=== PATIENT | male | born 1985 | race African-American/Black ===

== ENCOUNTER → 2018-01-09 | Outpatient (CLI) | payer OTHER ==
[~2018-01-09] MED LIST: NORCO 325 MG-51 TAB PO
[2018-01-09 09:37] LABS: SEMEN ANALYSIS VOLUME 1.6 mL (2.0-5.0)
[2018-01-09 13:24] LABS: SPERM MORPHOLOGY NORMAL FORMS >30 % (NORM >30)
== END | disposition home or self-care (01) ==
LOC: LAB 08:16
PROVIDERS: Urology
DX: N46.9 Male infertility, unspecified (principal)

== ENCOUNTER 2018-03-02 15:46 | Inpatient (IN) | payer OTHER ==
[~2018-03-02] VITALS: Ht 180.3 cm; Wt 122.7 kg
[2018-03-02] VITALS (7 sets, daily range): BP systolic 121–155; BP diastolic 52–97
--- NOTE | ~2018-03-02 | WRIGHTHP ---
[place], [place] PATIENT HISTORY AND PHYSICAL EXAM NAME: SADIE GALEANA UNIT #: [id number] ROOM: 530 DOCTOR: JACQUELIN WEISS MD BIRTHDATE: [birth year] DOS: 03/02/2018 HISTORY OF PRESENT ILLNESS: The patient is 32 years old. He comes in with complaints of chest pain. He was sitting at home yesterday when he experienced pain in the left side of his chest with radiation to the neck. He was a little short of breath. His heart raced a little bit, so his told him to take himself to the Emergency Room. In the Emergency Room, he was given a GI cocktail, which seems to have helped as per the patient. He denies having any fever, chills, any abdominal pain, nausea, emesis. He did not eat anything unusual. He did not have any abdominal pain, abdominal distention. PAST MEDICAL HISTORY: None significant. He has never been hospitalized. PAST SURGICAL HISTORY: He has never had any surgeries. MEDICATIONS: He does not take any medications. SOCIAL HISTORY: He does not smoke. Social alcohol usage only, does not use any recreational drugs. 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 PHYSICAL EXAMINATION: GENERAL: He is awake and alert and oriented. VITAL SIGNS: Graphic trend shows a pressure 143/92, pulse of 109, respirations 18, temperature 98.2. LUNGS: Diminished breath sounds, clear. HEART: Regular. ABDOMEN: Obese, soft, nontender. EXTREMITIES: Without any edema. ASSESSMENT AND PLAN: 1. Precordial chest pain. Other than being a male, he does not have any risk factors, no family history. So, the patient has been admitted. Rule out PR protocol was ordered. His troponins are borderline elevated and this could be from the renal abnormality that was noted. His creatinine is 1.45 with a GFR of 57. The patient is ordered a cardiac testing. Cardiology consultations were obtained. The patient is scheduled for a stress test. If it is negative, we will discharge him today. 2. Abnormal kidney functions, creatinine 1.45, GFR 57. At the age of 32, this is concerning, so we will go ahead and arrange for a renal ultrasound to make sure there are no structural abnormalities and the patient needs to follow up with the PCP for further followup on the renal functions. [place], [place] PATIENT HISTORY AND PHYSICAL EXAM NAME: SADIE GALEANA UNIT #: [id number] ROOM: [facility] DOCTOR: JACQUELIN WEISS MD BIRTHDATE: [birth year] JACQUELIN WIESS MD CM:HISPHYS:PATIENT HISTORY AND PHYSICAL EXAMINATION 6 4 JACQUELIN WEISS MD 03/03/18 0923 interface
[2018-03-02 16:24] LABS: BASO # 0.1 10*3/uL (0.0-0.1); BASO % 0.5 % (0.0-1.0); EOS # 0.3 10*3/uL (0.0-0.4); EOS % 2.6 % (1.0-4.0); HEMATOCRIT 46.3 % (42.0-52.0); HEMOGLOBIN 15.8 g/dl (14.0-18.0); LYMPH # 3.1 10*3/uL (1.3-4.4); LYMPH % 27.7 % (27.0-41.0); MEAN CELL VOLUME 88.9 fl (80.0-94.0); MEAN CORPUSCULAR HGB 30.3 pg (27.0-31.0); MEAN CORPUSCULAR HGB CONC 34.1 g/dl (33.0-37.0); MONO # 0.6 10*3/uL (0.1-1.0); MONO % 5.7 % (3.0-9.0); NEUT % 63.2 % (47.0-73.0); PLATELET COUNT AUTOMATED 238 10*3/uL (130-400); RED BLOOD COUNT 5.21 10*6/uL (4.50-5.90); RED CELL DISTRI WIDTH 12.5 % (0-14.5); WHITE BLOOD COUNT 11.1 10*3/uL (4.8-10.8)
[2018-03-02 16:33] LABS: ACT PARTIAL THROMBO TIME 22.4 SECONDS (20.8-31.5)
[2018-03-02 16:41] LABS: ALBUMIN 3.9 gm/dl (3.1-4.5); ALKALINE PHOSPHATASE 90 U/L (45-117); BUN 12 mg/dl (7-24); CHLORIDE 106 mmol/L (98-107); CREATININE 1.45 mg/dL (0.70-1.30); POTASSIUM 3.6 mmol/L (3.5-5.1); SGOT/AST 28 IU/L (3-35); SGPT/ALT 27 U/L (12-78); SODIUM 140 mmol/L (136-145); TOTAL PROTEIN 7.7 gm/dL (6.4-8.2)
[2018-03-02 16:47] LABS: TROPONIN I 0.066 ng/ml (<0.045)
[2018-03-03] VITALS: BP 130/81
[2018-03-03 04:19] LABS: CHOLESTEROL 171 mg/dL (<200); HDL CHOLESTEROL 37 mg/dl (40-60); LDL CHOLESTEROL 118 mg/dL (9-159); TRIGLYCERIDES 82 mg/dl (<150); VLDL CHOLESTEROL 16 mg/dL (6-40)
[2018-03-03 08:00] VITALS: BP 143/92
[2018-03-03 12:00] VITALS: BP 137/86
== END 2018-03-03 15:00 | disposition home or self-care (01) | DRG 313 ==
LOC: ED 15:46 → EDHOLD 17:05 → 5E 17:11
PROVIDERS: Internal Medicine; Student in an Organized Health Care Education/Training Program
PROC: 3E033HZ Introduction of Radioactive Substance into Peripheral Vein, Percutaneous Approach (ICD-10-PCS; principal; 2018-03-03)
PROC: 4A02XM4 Measurement of Cardiac Total Activity, External Approach (ICD-10-PCS; principal; 2018-03-03)
DX: R07.2 Precordial pain (principal); Z82.49 Family history of ischemic heart disease and other diseases of the circulatory system; Z83.3 Family history of diabetes mellitus

== ENCOUNTER → 2018-06-25 | Outpatient (CLI) | payer OTHER ==
[2018-06-26 07:04] LABS: FOLLICLE STIMULATING HORMONE 4.9 mIU/mL (1.5-12.4); LUTEINIZING HORMONE 004283 7.2 mIU/mL (1.7-8.6); PROLACTIN 004465 7.1 ng/mL (4.0-15.2)
[2018-06-27 11:05] LABS: TESTOSTERONE FREE, (DIRECT) 12.6 pg/mL (8.7-25.1)
== END | disposition home or self-care (01) ==
LOC: LAB 10:53
PROVIDERS: Urology
DX: Z31.69 Encounter for other general counseling and advice on procreation (principal)

== ENCOUNTER → 2024-12-15 | Outpatient (CLI) | payer BC ==
[2024-12-15 08:42] LABS: POTASSIUM 4.1 mmol/L (3.4-5.1); TOTAL PROTEIN 8.2 gm/dL (6.0-8.0)
== END | disposition home or self-care (01) ==
LOC: CARD 12-09 02:03 → LAB 01:34 → CARD 07:30
PROVIDERS: ATTEND Family Medicine
DX: Z13.6 Encounter for screening for cardiovascular disorders (principal); I10 Essential (primary) hypertension